=== PATIENT | male | born 1970 | race Caucasian/White ===

== ENCOUNTER → 2017-03-27 | Outpatient (CLI) | payer OTHER | END | disposition home or self-care (01) | LOC: CFH 07:08 | PROVIDERS: ATTEND Internal Medicine | DX: K76.0 Fatty (change of) liver, not elsewhere classified (principal); K82.4 Cholesterolosis of gallbladder; E78.5 Hyperlipidemia, unspecified; I10 Essential (primary) hypertension; K21.9 Gastro-esophageal reflux disease without esophagitis | CPT/HCPCS: 76700 ==

== ENCOUNTER → 2017-05-09 | Outpatient (CLI) | payer OTHER | END | disposition home or self-care (01) | LOC: PETCFH 08:16 | PROVIDERS: ATTEND Internal Medicine | DX: R10.11 Right upper quadrant pain (principal) | CPT/HCPCS: 78227; A9537 ==

== ENCOUNTER 2017-07-31 07:04 | Day surgery (SDC) | payer OTHER ==
[~2017-07-31] VITALS: Ht 175.3 cm; Wt 91.0 kg
[2017-07-31 08:07] VITALS: BP 117/79
[2017-07-31] MEDS ORDERED: LACTATED RINGERS 1,000 ML IV SCH (08:09)
[2017-07-31] MEDS ORDERED: FENTANYL PF 100 MCG/2ML ONE ×4 (08:14→12:50)
[2017-07-31] MEDS ORDERED: MIDAZOLAM 1 MG/ML, 2ML ONE (08:15)
[2017-07-31] MEDS ORDERED: ROSU10TA PO (08:17)
[2017-07-31] MEDS ORDERED: LOSA1TAB2 PO (08:17)
[2017-07-31] MEDS ORDERED: FENO54TA17 PO (08:17)
[2017-07-31] MEDS ORDERED: OMEP40CA6 PO (08:17)
[2017-07-31] MEDS ORDERED: AMIT50TA PO (08:17)
[2017-07-31] MEDS ORDERED: FLUT50DI NAS (08:17)
[2017-07-31] MEDS ORDERED: ROCURONIUM 10 MG/ML,10ML ONE (08:18)
[2017-07-31] MEDS ORDERED: PROPOFOL 10 MG/ML, 20ML ONE (08:18)
[2017-07-31 08:20] LABS: HEMATOCRIT 47.6 % (39.2-51.8); HEMOGLOBIN 16.5 g/dL (13.7-18.0); WHITE BLOOD COUNT 6.9 x10^3/uL (3.4-10)
[2017-07-31] MEDS ORDERED: NEOSTIGMINE 1 MG/ML, 10ML ONE (08:20)
[2017-07-31] MEDS ORDERED: GLYCOPYRROLATE 0.4 MG/2 ML, 2ML ONE (08:20)
[2017-07-31] MEDS ORDERED: CEFOTETAN PMX 2GM/50ML 50 ML ONE (08:21)
[2017-07-31 08:27] LABS: ASPARTATE AMINO TRANSFERASE 25 U/L (15-37); BLOOD UREA NITROGEN 16 mg/dL (7-18)
[2017-07-31] MEDS ORDERED: EPINEPHRINE 1 MG/ML, 1ML ONE (08:32)
[2017-07-31] MEDS ORDERED: BUPIVACAINE/PF 0.5% ONE (08:32)
[2017-07-31] MEDS ORDERED: OXYcodone 5 MG/5 ML ORAL.SOL UDC PO PRN (09:00)
[2017-07-31] MEDS ORDERED: HYDROmorphone 1 MG/ML, 1ML IV PRN (09:00)
[2017-07-31] MEDS ORDERED: PROMETHAZINE 25 MG/ML, 1ML IV PRN (09:00)
[2017-07-31] MEDS ORDERED: ONDANSETRON 2MG/ML, 2ML IVPush PRN (09:00)
[2017-07-31] MEDS ORDERED: FENTANYL PF 100 MCG/2ML IV PRN (09:00)
[2017-07-31] MEDS ORDERED: hydrALAzine 20 MG/ML, 1ML IV PRN (09:00)
[2017-07-31] MEDS ORDERED: LABETALOL 5MG/ML, 20ML IV PRN (09:00)
[2017-07-31] MEDS ORDERED: MEPERIDINE/PF 25MG/0.5ML IVPush PRN (09:00)
[2017-07-31] MEDS ORDERED: BUPIVACAINE/PF-EPI 0.5% 1:200K IM ONE (09:46)
[2017-07-31] MEDS ORDERED: ACETAMINOPHEN 650 MG/20.3 ML UDC ONE (11:56)
[2017-07-31] MEDS ORDERED: ACETAMINOPHEN 325 MG TABLET ONE (11:56)
[2017-07-31] MEDS ORDERED: OXYcodone 5 MG/5 ML ORAL.SOL UDC ONE (11:57)
[2017-07-31] MEDS: ACETAMINOPHEN 325 MG TABLET PO PRN ×2 (12:15→12:50)
[2017-07-31] MEDS ORDERED: ONDANSETRON 2MG/ML, 2ML ONE ×2 (12:32→15:05)
[2017-07-31] MEDS ORDERED: OXYcodone/APAP 5/325MG TABLET ONE (16:07)
== END 2017-07-31 19:00 | disposition home or self-care (01) ==
LOC: OR 07:04
PROVIDERS: ATTEND Surgery
DX: K80.10 Calculus of gallbladder with chronic cholecystitis without obstruction (principal); K21.9 Gastro-esophageal reflux disease without esophagitis; I10 Essential (primary) hypertension; E78.5 Hyperlipidemia, unspecified; Z87.39 Personal history of other diseases of the musculoskeletal system and connective tissue
CPT/HCPCS: 36415; 47562; 80053; 85025; 88304; J0171; J2250; J2405; J2704; J2710; J3010; J3490; J7120; S0074; S2900

== ENCOUNTER → 2018-04-28 | Outpatient (CLI) | payer OTHER ==
[~2018-04-28] MED LIST: AMIT50TA PO; FENO54TA17 PO; FLUT50DI NAS; LOSA1TAB2 PO; OMEP40CA6 PO; ROSU10TA PO
== END | disposition home or self-care (01) ==
LOC: CFH 09:54
PROVIDERS: ATTEND Internal Medicine Cardiovascular Disease
DX: R07.89 Other chest pain (principal); I10 Essential (primary) hypertension; E78.5 Hyperlipidemia, unspecified
CPT/HCPCS: 93306